=== PATIENT | male | born 1990 | race Caucasian/White ===

== ENCOUNTER 2023-08-22 13:47 | Emergency (ER) | payer SELFPAY ==
[~2023-08-22] VITALS: Ht 172.7 cm; Wt 100.0 kg
[2023-08-22 13:56] VITALS: O2SAT 96
[2023-08-22] MEDS: SODIUM CHLORIDE 0.9% 1,000 ML IV ONE ×2 (14:48→17:29)
[2023-08-22] MEDS: NALOXONE HCL 0.4MG/ML 1ML VIAL IV PRN (14:48)
[2023-08-22 15:39] LABS: BASOPHILS % 0.9 % (0.0-2.0); HEMATOCRIT. 45.8 % (42.0-52.0); HEMOGLOBIN. 15.7 g/dL (14.0-18.0); LYMPHOCYTES % 48.5 % (20.0-50.0); MEAN CORPUSCULAR HEMOGLOBIN 32.2 pg (28.0-32.0); MEAN CORPUSCULAR HGB CONC 34.3 g/dL (31.0-37.0); MEAN CORPUSCULAR VOLUME 94.1 fL (80.0-94.0); MEAN PLATELET VOLUME 7.8 fl (7.4-10.4); MONOCYTES % 5.4 % (2.0-8.0); NEUTROPHILS % 41.2 % (40.0-76.0); PLATELET 337 x1000/uL (130-400); RED BLOOD CELL COUNT 4.87 mill/uL (4.7-6.1); RED CELL DISTRIBUTION WIDTH 14.2 % (11.6-14.6); WHITE BLOOD COUNT 8.9 x1000/uL (4.5-11.0)
[2023-08-22 15:52] LABS: CARBON DIOXIDE 24 mEq/L (21-32); CHLORIDE 108 mEq/L (98-107); POTASSIUM 3.9 mEq/L (3.5-5.1); SODIUM 144 mEq/L (136-145)
[2023-08-22 15:53] LABS: CALCIUM 8.8 mg/dL (8.7-10.4)
[2023-08-22 15:57] LABS: AMMONIA 26 uMol/L (<32)
[2023-08-22 15:58] LABS: CREATININE 0.8 mg/dL (0.6-1.3); ETHANOL BLOOD 300 mg/dL (<10); GLUCOSE 118 mg/dL (70-105); TROPONIN I HIGH SENSITIVITY < 4 ng/L (3.0-53); UREA NITROGEN BLOOD 6 mg/dL (9-23)
[2023-08-22 15:59] LABS: ACETAMINOPHEN < 2 ug/mL (10-30); ALANINE AMINOTRANSFERASE 77 IU/L (10-49); ASPARTATE AMINOTRANSFERASE 47 IU/L (<34)
[2023-08-22 16:00] LABS: BILIRUBIN TOTAL 0.3 mg/dL (0.1-1.0); CREATINE KINASE 323 IU/L (46-171); PROTEIN TOTAL 8.1 g/dL (6.0-8.3)
[2023-08-22 16:08] VITALS: TEMP 98.7
[2023-08-22 18:32] VITALS: BP 118/63; PULSE 90; RESP 16
== END 2023-08-22 18:31 | disposition home or self-care (01) ==
LOC: ER 14:03
DX: F10.129 Alcohol abuse with intoxication, unspecified (principal); Z98.890 Other specified postprocedural states; Y90.8 Blood alcohol level of 240 mg/100 ml or more
CPT/HCPCS: 80053; 80307; 80329; 80320; 82140; 82550; 85025; 84484; 36415; 70450; 96361; 96374; 99285; J2310; J7030; G0480